=== PATIENT | male | born 1940 | race Caucasian/White ===

== ENCOUNTER 2018-10-07 15:20 | Emergency (ER) | payer MEDICARE, OTHER ==
[2018-10-07 16:12] LABS: HEMATOCRIT 33 % (39-53); HEMOGLOBIN 10.8 gm/dl (13.5-17.7); MEAN CORPUSCULAR HGB CONC 32.3 gm/dl (32.0-36.0)
[2018-10-07 16:26] LABS: ALBUMIN 3.8 gm/dl (3.4-5.0); BILIRUBIN,TOTAL 0.5 mg/dl (0.2-1.0); CALCIUM 8.9 mg/dl (8.5-10.1); CARBON DIOXIDE 27.4 mEq/L (21-32); CREATININE 1.79 mg/dl (0.80-1.30); TOTAL PROTEIN 6.7 gm/dl (6.4-8.2)
[2018-10-07 16:34] LABS: MEAN CORPUSCULAR VOLUME 99 fL (80-100)
[2018-10-07 16:35] LABS: BAND NEUTROPHILS % (MANUAL) 0 %; BASOPHILS % (MANUAL) 0 % (0-3); EOSINOPHILS % (MANUAL) 0 % (0-9); LYMPHOCYTES % (MANUAL) 92 % (10-50); MONOCYTES % (MANUAL) 1 % (0-12); NEUTROPHILS % (MANUAL) 7 % (37-80); NORMAL RBCS NORMAL RBCS
[2018-10-07 16:36] LABS: WBC MORPHOLOGY COMMENT VARIANT LYMPHS
[2018-10-07 16:51] VITALS: BP 157/77; PULSE 78; RESP 18; TEMP 97.5; O2SAT 96
== END 2018-10-07 17:18 | disposition home or self-care (01) | DRG 948 ==
LOC: ED 15:20
DX: R53.83 Other fatigue (principal)
CPT/HCPCS: 36415; 80053; 85007; 85027; 99282; A6232